=== PATIENT | female | born 1980 | race Caucasian/White ===

== ENCOUNTER 2016-08-16 06:19 | Inpatient (IN) | payer OTHER ==
[2016-08-16] MEDS ORDERED: OLIVE OIL 118 ML BTL MISC PRN (07:51)
[2016-08-16] MEDS ORDERED: OXYTOCIN/RINGERS LACTATE 1,000 ML IV PRN (07:51)
[2016-08-16] MEDS ORDERED: TERBUTALINE SULFATE 1 MG/ML VIAL IV PRN (07:51)
[2016-08-16] MEDS ORDERED: LR 1,000 ML IV PRN (07:51)
[2016-08-16] MEDS ORDERED: EPSOM SALT 454 GM TP PRN (07:51)
[2016-08-16 09:19] LABS: % IMMATURE GRANULYOCYTES 0.5 % (0.0-1.1); ABSOLUTE IMMATURE GRANULOCYTES 0.04 10^3/uL (0.00-0.10); ADD DIFF? NO; ADD MORPH? NO; ADD SCAN? NO; ATYPICAL LYMPHOCYTE FLAG 0 (0-99); FRAGMENT RBC FLAG 0 (0-99); HEMATOCRIT 41.3 % (38.0-47.0); HEMOGLOBIN 14.5 g/dL (12.6-16.3); LEFT SHIFT FLG 10 (0-99); LIPEMIA HEMOLYSIS FLAG 90 (0-99); MEAN CELL HEMOGLOBIN 31.5 pg (27.9-34.1); MEAN CELL HEMOGLOBIN CONCENTR. 35.1 g/dL (32.4-36.7); MEAN CELL VOLUME 89.6 fL (81.5-99.8); MEAN PLATELET VOLUME 11.8 fL (8.7-11.7); PLATELET CLUMPS FLAG 0 (0-99); PLATELET COUNT 128 10^3/uL (150-400); RED BLOOD CELL COUNT 4.61 10^6/uL (4.18-5.33); RED CELL DISTRIBUTION WIDTH 13.5 % (11.5-15.2)
[2016-08-16] MEDS ORDERED: fentaNYL 2MCG/ML/BUP 0.1% RTU 100 ML BAG EP ONE (09:19)
[2016-08-16] MEDS ORDERED: fentaNYL 100 MCG/2 ML INJ ONE (09:20)
[2016-08-16] MEDS ORDERED: PHENYLEPHRINE HCL 100 MCG/ML SYR ONE (09:20)
[2016-08-16] MEDS ORDERED: BUPIVACAINE 0.25% 30 ML SDV ONE (09:20)
--- NOTE | 2016-08-16 10:58 | PREANESOB ---
Obstetric Pre-Anesthesia Info - General Info Proposed Procedure: Labor and delivery. : 2 Para: 1 WBD: 39 - Info Status: Full Term Monitors: External FHR Baseline (bpm): 132 FHR Pattern: Reassuring - Labor Status Cervical Dilation per last OB SVE: 4 Indications for Labor Analgesia: Pain Control Labor Epidural: Proposed (SROM.) Anesthesia ROS: Prior labor epidural. Allergies/Adverse Reactions: Allergy/AdvReac Type Severity Reaction Status Date / Time No Known Allergies Allergy Unverified 09/14/11 21:14 Home Medications: Medication Instructions Recorded Vit27&Calcium/Iron/FA 1 tab PO DAILY 01/02/12 [] Visit Medications: Generic Name Dose Route Start Last Admin Trade Name Freq PRN Reason Stop Dose Admin Lactated Ringer's 1,000 mls @ 0 mls/hr 08/16/16 07:51 Lr IV 02/12/17 07:50 PRN PRN SEE PROTOCOL CONDITIONS Protocol Per Protocol Oxytocin/Lactated Ringer's 1,000 mls @ 150 mls/hr 08/16/16 07:51 Pitocin 20 Units/Lr (Premix) IV PRN PRN Post- bleeding Ibuprofen 600 mg 08/16/16 07:51 Motrin PO 02/12/17 07:50 Q6HRS PRN post , inflammation Magnesium Sulfate 454 gm 08/16/16 07:51 Epsom Salt TP 02/12/17 07:50 PRN PRN perineal discomfort Sparks Oil 118 ml 08/16/16 07:51 Sweet Oil MISC 02/12/17 07:50 ONCE PRN preneal massage Terbutaline Sulfate 0.25 mg 08/16/16 07:51 Brethine IV 02/12/17 07:50 ONCE PRN Tachysystole Discontinued Medications Generic Name Dose Route Start Last Admin Trade Name Freq PRN Reason Stop Dose Admin Bupivacaine HCl Confirm 08/16/16 09:20 Sensorcaine 0.25% Sdv Administered 08/16/16 09:21 Dose 30 ml .ROUTE .STK-MED ONE Fentanyl Confirm 08/16/16 09:20 Sublimaze Administered 08/16/16 09:21 Dose 100 mcg .ROUTE .STK-MED ONE Fentanyl/Bupivacaine HCl Confirm 08/16/16 09:19 Fentanyl/Bupivacaine/Ns 2 Mcg/Ml 0.1% (Premix Administered 08/16/16 09:20 Dose 100 ml EP .STK-MED ONE Phenylephrine HCl Confirm 08/16/16 09:20 Neosynephrine Administered 08/16/16 09:21 Dose 1,000 mcg .ROUTE .STK-MED ONE - Anesthesia History Response to Local Anesthetics: Normal Anesthesia & Operative History: No Prior Problems Family Anesthesia History: Not Applicable - Social History Substance Use/Abuse: Denies - Focused Exam Blood Pressure: 109/56 Heart Rate: 70 Respiratory Rate: 18 Height/Weight (Nursing): Height 160.02 cm Weight 70.307 kg Physical Exam: Within normal limits. ASA Status: II Labs: 08/16/16 09:08 Patient ABO/Rh A POSITIVE 08/16/16 09:08 - Plan Anesthetic Plan: CSE Consent Signed and on Chart: Yes Patient/Guardian Understands and Agrees to Plan: Yes
[2016-08-16] MEDS ORDERED: ONDANSETRON 4 MG/2 ML VIAL IVP PRN (11:03)
[2016-08-16] MEDS ORDERED: PHENYLEPHRINE HCL 100 MCG/ML SYR IVP PRN (11:03)
--- NOTE | 2016-08-16 11:07 | POSTANESTH ---
Post Anesthetic Evaluation Cardiovascular Status: Normal, Stable Respiratory Status: Normal, Stable, Similar to Pre-op Cond. Level of Consciousness/Mental Status: Can Participate in Eval, Alert and Oriented (Tolerated CSE well, stable, comfortable.) Pain Control: Adequate, Prn Tx Ordered Nausea/Vomiting Control: Adequate, Prn Tx Ordered Complications Possibly Related to Anesthesia: None Noted
[2016-08-16] MEDS ORDERED: fentaNYL 2MCG/ML/BUP 0.1% RTU 100 ML EP SCH (11:30)
[2016-08-16] MEDS ORDERED: LR 500 ML IV SCH (11:30)
[2016-08-16] MEDS ORDERED: LIDOCAINE 1% 300 MG/30 ML SDV ONE (12:29)
[2016-08-16] MEDS ORDERED: AMMONIA AROMATIC 1 EACH AMP IH ONE (12:29)
[2016-08-16] MEDS ORDERED: OLIVE OIL 118 ML BTL ONE (12:29)
[2016-08-16] MEDS ORDERED: TERBUTALINE SULFATE 1 MG/ML VIAL ONE (12:30)
[2016-08-16] MEDS ORDERED: OXYTOCIN 10 UNIT/ML VIAL ONE (12:30)
[2016-08-16] MEDS ORDERED: MISOPROSTOL 200 MCG TAB ONE (12:30)
[2016-08-16] MEDS ORDERED: ACETAMINOPHEN 325 MG TAB PO PRN (13:30)
[2016-08-16] MEDS ORDERED: HYDROCODONE/APAP 5/325 TAB PO PRN (13:30)
--- NOTE | 2016-08-16 13:35 | OBDEL ---
Info Type: Vaginal GBS+: No Indications for Delivery: Spontaneous Labor, SROM Vaginal Delivery - Labor and Delivery Onset of Contractions Date: 08/16/16 Onset of Contractions Time: 06:30 Onset of Contractions Type: Spontaneous Rupture of Membranes Date: 08/16/16 Rupture of Membranes Time: 04:00 Rupture of Membranes Type: Spontaneous Amniotic Fluid Color: Clear Dilation Complete Date: 08/16/16 Dilation Complete Time: 11:45 Placenta Delivery Date: 08/16/16 Placenta Delivery Time: 13:02 (small trailing membrane teased out and GINA swept and not membranes noted) Total Hours of Labor: 6 Laceration: 2nd Degree (small, midline perineal) Repair: 3-0, Vicryl Vaginal Sponge Count Correct: Yes Vaginal Needle Count Correct: Yes Vaginal Sweep Performed: Yes EBL: 300 Delivery Events: Nuchal Cord (x1 loose and reducible) Operative Report - Delivery L&D Analgesia/Anesthesia Type: Epidural Data Armijo Delivery Date: 08/16/16 Delivery Time: 12:45 ONEYDA: 08/23/16 Gestational Age: 39 week(s) and 0 day(s) Sex of Infant: Male (Edd Sheth) Score (1 Min): 8 Score (5 Min): 9 ICD10 Worksheet Patient Problems: Problems Problem Status Onset (spontaneous vaginal delivery) Acute
[2016-08-16] MEDS: IBUPROFEN 600 MG TAB PO PRN ×2 (14:06→19:56)
--- NOTE | 2016-08-16 14:20 | GHP ---
[f rep st] PREOP HISTORY AND PHYSICAL DATE OF ADMISSION: 08/16/2016 ADMISSION SUMMARY: Patient is a 35-year-old, G2, P1, at 39 weeks gestation with an estimated due da te of 08/23/2016 who presents in early labor after spontaneous rupture of membranes at 4 a.m. with c lear fluid. The patient had spontaneous onset of contractions approximately 6:30 and were increasin g in discomfort when the patient arrived. The patient requested an epidural in mid morning, and thi s was placed without problems by Dr. Dior. The patient had an exam after the epidural and was 4- 5 cm dilated at 100% effaced. Clear fluid persisted during labor. COURSE: The patient has been followed with [facility] since 9 weeks gestation. The patient was noted to have a marginal cord insertion on ultrasound at 20 weeks, and a followup ul trasound was performed at 31 weeks, which showed estimated weight at the 23rd percentile. The re was a questionable shortened cervix at the beginning of . However, this was followed up with ultrasounds and was reassuring. Initially, there was question if the cord was a velamentous i nsertion. However, several views of the placenta revealed it to be marginal. The patient had no ot her complications with . She was having some mild right carpal tunnel symptoms extending u p to her shoulder and back. LABS: Include maternal blood type A positive with negative antibody screen. RPR nonreacti ve. Rubella immune. Hepatitis B surface antigen negative. HIV negative. Cystic fibrosis, SMA, fr agile X, all negative. Pap smear was negative. Verify testing was negative, and MSAFP was negative . Hematocrit was 38% to 40%. A 1-hour Glucola was slightly elevated, and normal 3-hour GTT. GBS c ulture was negative. PAST MEDICAL HISTORY: Occasional UTIs in the past. PAST SURGICAL HISTORY: Odontectomy at 19. PAST OBSTETRIC HISTORY: In December 2011, a viable female named Geovany, delivered at 39+ weeks, at 6 pounds 9 ounces by vaginal . ALLERGIES: Patient has no known drug allergies. CURRENT MEDICATIONS: Only vitamins. SOCIAL HISTORY: The patient is , lives with her , William, and their daughter, Geovany. The patient is a nonsmoker. No alcohol or drug use. PHYSICAL EXAMINATION: GENERAL: Upon admission, the patient is a well-developed, well-nourished, wh ite female, with increasing contraction and discomfort but improved after the epidural. VITAL SIGNS : The patient is afebrile, and vital signs are normal. See nursing documentation for full details. heart tones revealed a category 1 tracing with the baseline in the 140s with moderate variab ility and accelerations. ASSESSMENT: Intrauterine at 39 weeks gestation with spontaneous rupture of membranes and spontaneous onset of labor. Patient comfortable with an epidural. PLAN: GBS negative. Expect good progression of labor and vaginal . Will be cautious with the placental delivery with the history of a marginal cord insertion. /[id number]/MODL
[2016-08-16] MEDS: DOCUSATE SODIUM 100 MG CAP PO PRN (19:56)
[2016-08-17] MEDS: IBUPROFEN 600 MG TAB PO PRN ×3 (03:48→16:04)
--- NOTE | 2016-08-17 07:53 | OBPP ---
Progress Note Assessment/Plan: Assessment: s/p PPD # 1 - pt is stable Plan: Continue routine pp care Plan for d/c home later today if baby is discharged Instructions reviewed with pt No Rx given Cont PNV Pelvic rest RTC in 4 and 6 weeks 08/17/16 07:51 Subjective: Pt seen and examined. Doing well, no complaints. Some cramping, relief with Motrin. Moderate lochia. No BM yet. BF so far so good with a shield. Wants to go home today. Wants baby circumcised. Objective: 08/16/16 09:08 Patient ABO/Rh A POSITIVE 08/16/16 09:08 Temp Pulse Resp BP Pulse Ox 36.5 C 67 16 143/73 H 99 08/16/16 19:29 08/16/16 19:29 08/16/16 19:29 08/16/16 19:29 08/16/16 19:29 Uterine Position/Fundal Height: Umbilicus -2 Uterine Tone: Firm Physical Exam - Physical Exam General Appearance: WD/WN, alert, no apparent distress Respiratory: lungs clear, normal breath sounds Cardiac/Chest: regular rate, rhythm Abdomen: normal bowel sounds, non-tender, soft, flatus (+) Extremities: non-tender, normal inspection Neuro/Psych: alert, normal mood/affect, oriented x 3
--- NOTE | 2016-08-17 07:54 | OBGCSDC ---
General Delivery Information - General Info : 2 Para: 2 Delivery Physician/CNM: Camryn Quinonez Admission Date: 08/16/16 Labs: Patient ABO/Rh A POSITIVE 08/16/16 09:08 Hct 41.3 % (38.0-47.0) 08/16/16 09:08 Vaginal - Diagnosis Labor: Spontaneous Rupture of Membranes Type: Spontaneous Amniotic Fluid Color: Clear Laceration: 2nd Degree (small, midline perineal) Repair: 3-0, Vicryl Delivery Events: Nuchal Cord (x1 loose and reducible) - Operations/Procedures L&D Analgesia/Anesthesia Type: Epidural - Hospital Course : Uncomplicated. Moderate lochia. No BM yet. BF well with a shield. - Delivery L&D Analgesia/Anesthesia Type: Epidural Conway Data Armijo Delivery Date: 08/16/16 Delivery Time: 12:45 ONEYDA: 08/23/16 Gestational Age: 39 week(s) and 1 day(s) Sex of Infant: Male (Edd Sheth) Conway Weight (gm): 0 g Score (1 Min): 8 Score (5 Min): 9 Discharge Information - Discharge Information Discharge Medications: Vitamins Condition: Good Instruction/Follow Up: Six Weeks (and 4 weeks) Discharge Physician/CNM: Haven Gil
[2016-08-17 09:01] VITALS: BP 119/73; PULSE 80; RESP 18; TEMP 98.1; O2SAT 96
[2016-08-17] MEDS: DOCUSATE SODIUM 100 MG CAP PO PRN (10:00)
== END 2016-08-17 17:50 | disposition home or self-care (01) | DRG 775 ==
LOC: OBSVTOIN 06:19 → FLD 06:19 → FOB 16:00
PROVIDERS: ADMIT Obstetrics & Gynecology; ATTEND Obstetrics & Gynecology
DX: O70.1 Second degree perineal laceration during delivery (principal); O69.81X0 Labor and delivery complicated by cord around neck, without compression, not applicable or unspecified; Z3A.39 39 weeks gestation of pregnancy; Z37.0 Single live birth
CPT/HCPCS: J2370; J2590; J3010; J3105

== ENCOUNTER → 2018-08-23 | Outpatient (CLI) | payer OTHER | LOC: FIMAGING 10:55 ==